=== PATIENT | female | born 1935 | race Caucasian/White ===

== ENCOUNTER 2018-10-29 14:27 | Inpatient (IN) | payer OTHER ==
[~2018-10-29] VITALS: Ht 167.6 cm; Wt 75.8 kg
[~2018-10-29 14:27] MED LIST: AMITRIPTYLINE H50 MG PO; AMITRIPTYLINE25 MG PO; AMLODIPINE BESY10 M1 PO; AMLODIPINE10 MG PO; ASPIR 8181 MG PO; ATENOLOL25 PO; ATOXIMETIN-B1 CAP PO; BACO TOP; CYTOMEL0.005 MG PO; ELITE MAGNESIUM1 TAB PO; FISH; HIBICLENS118 ML TOP; HYDROCODONE; LAC PO; LEVAQUIN250 MG PO; LEVOTHYROXINE; LOSART; LOSARTAN POTASS50 M1 PO; NEU100 PO; OMEPRAZOLE DR20 MG PO; SYNTHROID0.125 MG PO; TEN50 PO; TYLENOL WITH CO1 TA2 PO; ZYL300 PO; [UNRECOGNIZED DRUG - OTHER] PO
[2018-10-29 15:47] LABS: BASOPHIL % 0.3 % (0-2); PLATELET COUNT 173 x10^3mcL (130-400)
[2018-10-29 15:48] LABS: RED CELL DISTRIBUTION WIDTH 14.9 % (11.5-14.5)
[2018-10-29 15:56] LABS: CALCIUM 10.4 mg/dL (8.5-10.1); CARBON DIOXIDE 28.9 mmol/L (21-32); CHLORIDE SERUM 105 mmol/L (98-107); CREATININE SERUM 1.7 mg/dL (0.6-1.0); GLUCOSE SERUM 145 mg/dL (74-106); POTASSIUM SERUM 3.7 mmol/L (3.5-5.1); SODIUM SERUM 139 mmol/L (136-145)
[2018-10-29 16:00] LABS: ALKALINE PHOSPHATASE 129 U/L (46-116); ALT/SGPT 26 U/L (14-59); AST/SGOT 31 U/L (15-37); BILIRUBIN TOTAL 0.58 mg/dL (0.20-1.00); LIPASE 95 IU/L (73-393); TOTAL PROTEIN, SERUM 6.6 g/dL (6.4-8.2)
[2018-10-29 16:01] LABS: ALBUMIN 3.3 g/dL (3.4-5.0)
[2018-10-29 16:58] LABS: UA SPECIFIC GRAVITY 1.015 (1.005-1.035); microscopic required? YES; urine erythrocyte NEGATIVE (NEGATIVE)
[2018-10-29] MEDS ORDERED: ATENOLOL50 MG PO (17:39)
[2018-10-29] MEDS ORDERED: LOSARTAN POTAS100 M1 PO (17:40)
[2018-10-29] MEDS ORDERED: SYNTHROID0.075 MG PO (17:40)
[2018-10-29] MEDS ORDERED: NEU300 PO (17:40)
[2018-10-29] MEDS ORDERED: AMITRIPTYLINE H50 MG PO (17:40)
[2018-10-29] MEDS ORDERED: ASPIR 8181 MG PO (17:40)
[2018-10-29 20:24] VITALS: BP 88/46
[2018-10-29 21:25] VITALS: BP 86/54
[2018-10-29 21:50] VITALS: BP 119/78
[2018-10-29 23:00] VITALS: BP 110/77
[2018-10-30] VITALS (7 sets, daily range): BP systolic 74–114; BP diastolic 45–76; Ht 167.6 cm; Wt 75.8 kg
[2018-10-30 04:03] LABS: UA SPECIFIC GRAVITY 1.025 (1.005-1.035); microscopic required? YES; urine erythrocyte TRACE (NEGATIVE)
[2018-10-30 05:19] LABS: PLATELET COUNT 191 x10^3mcL (130-400); RED CELL DISTRIBUTION WIDTH 14.5 % (11.5-14.5)
[2018-10-30 05:46] LABS: CALCIUM 9.4 mg/dL (8.5-10.1); CARBON DIOXIDE 25.8 mmol/L (21-32); CHLORIDE SERUM 107 mmol/L (98-107); CREATININE SERUM 1.7 mg/dL (0.6-1.0); GLUCOSE SERUM 120 mg/dL (74-106); POTASSIUM SERUM 4.3 mmol/L (3.5-5.1); SODIUM SERUM 135 mmol/L (136-145); T4(THYROXINE) 5.3 ug/dL (4.7-13.3)
[2018-10-30 06:36] LABS: BAND NEUTROPHIL 15 % (0-10); MONOCYTE 8 % (0-7); SEGMENTED NEUTROPHILS 71 % (37-75)
[2018-10-30 06:39] LABS: PLATELET MORPHOLOGY PLATELETS NORMAL; rbc morphology (normal/abnorm) ABNORMAL (NORMAL)
[2018-10-30 06:41] LABS: ERYTHROCYTE SED RATE 19 mm/hr (0-30)
[2018-10-31] VITALS (9 sets, daily range): BP systolic 88–136; BP diastolic 43–78
[2018-10-31 05:10] LABS: PLATELET COUNT 156 x10^3mcL (130-400)
[2018-10-31 05:12] LABS: BASOPHIL % 0 % (0-2); RED CELL DISTRIBUTION WIDTH 15.2 % (11.5-14.5)
[2018-10-31 05:27] LABS: CALCIUM 8.9 mg/dL (8.5-10.1); CARBON DIOXIDE 25.8 mmol/L (21-32); CHLORIDE SERUM 110 mmol/L (98-107); CREATININE SERUM 1.7 mg/dL (0.6-1.0); GLUCOSE SERUM 161 mg/dL (74-106); POTASSIUM SERUM 5.1 mmol/L (3.5-5.1); SODIUM SERUM 138 mmol/L (136-145)
[2018-10-31 12:27] LABS: RAPID PLASMA REAGIN Non Reactive (Non Reactive); RHEUMATOID ARTHRITIS FACTOR 10.4 IU/mL (0.0-13.9)
[2018-11-01] VITALS (14 sets, daily range): BP systolic 97–152; BP diastolic 54–95
[2018-11-01 06:01] LABS: CALCIUM 9.1 mg/dL (8.5-10.1); CHLORIDE SERUM 112 mmol/L (98-107); CREATININE SERUM 1.6 mg/dL (0.6-1.0); GLUCOSE SERUM 156 mg/dL (74-106); POTASSIUM SERUM 4.2 mmol/L (3.5-5.1); SODIUM SERUM 143 mmol/L (136-145)
[2018-11-01 06:05] LABS: BASOPHIL % 0 % (0-2); PLATELET COUNT 141 x10^3mcL (130-400)
[2018-11-02 05:12] VITALS: BP 152/75
[2018-11-02 07:01] LABS: CALCIUM 9.5 mg/dL (8.5-10.1); CARBON DIOXIDE 24.9 mmol/L (21-32); CHLORIDE SERUM 112 mmol/L (98-107); CREATININE SERUM 1.6 mg/dL (0.6-1.0); GLUCOSE SERUM 119 mg/dL (74-106); POTASSIUM SERUM 4.3 mmol/L (3.5-5.1); SODIUM SERUM 145 mmol/L (136-145)
[2018-11-02 08:56] VITALS: BP 152/80
[2018-11-02 09:35] LABS: BASOPHIL % 0.2 % (0-2); PLATELET COUNT 161 x10^3mcL (130-400)
[2018-11-02 09:36] LABS: RED CELL DISTRIBUTION WIDTH 15.7 % (11.5-14.5)
[2018-11-02 13:38] VITALS: BP 137/78
[2018-11-02 16:47] VITALS: BP 156/80
[2018-11-02 21:43] VITALS: BP 122/59
[2018-11-03 05:53] VITALS: BP 154/76
[2018-11-03 06:17] LABS: BASOPHIL % 0.1 % (0-2); PLATELET COUNT 174 x10^3mcL (130-400)
[2018-11-03 10:14] VITALS: BP 143/73
[2018-11-03 12:28] VITALS: BP 159/71
[2018-11-03 17:00] VITALS: BP 144/78
[2018-11-03 20:53] VITALS: BP 142/94
[2018-11-04 04:07] VITALS: BP 141/70
[2018-11-04 05:14] VITALS: BP 101/52
[2018-11-04 07:44] LABS: BASOPHIL % 0 % (0-2); PLATELET COUNT 222 x10^3mcL (130-400); RED CELL DISTRIBUTION WIDTH 15.1 % (11.5-14.5)
[2018-11-04 08:02] LABS: ALKALINE PHOSPHATASE 78 U/L (46-116); ALT/SGPT 18 U/L (14-59); AST/SGOT 16 U/L (15-37); BILIRUBIN TOTAL 0.2 mg/dL (0.20-1.00); CALCIUM 10.2 mg/dL (8.5-10.1); CARBON DIOXIDE 24.4 mmol/L (21-32); CHLORIDE SERUM 107 mmol/L (98-107); CREATININE SERUM 1.5 mg/dL (0.6-1.0); GLUCOSE SERUM 171 mg/dL (74-106); POTASSIUM SERUM 3.8 mmol/L (3.5-5.1); SODIUM SERUM 141 mmol/L (136-145)
[2018-11-04 08:08] LABS: ALBUMIN 2.3 g/dL (3.4-5.0); TOTAL PROTEIN, SERUM 5.6 g/dL (6.4-8.2)
[2018-11-04 08:59] VITALS: BP 129/64
[2018-11-04 13:09] VITALS: BP 151/80
[2018-11-04 16:42] VITALS: BP 147/73
[2018-11-04 20:27] VITALS: BP 149/69
[2018-11-05 05:53] VITALS: BP 155/74
[2018-11-05 06:34] LABS: CALCIUM 9.7 mg/dL (8.5-10.1); CARBON DIOXIDE 28.6 mmol/L (21-32); CHLORIDE SERUM 108 mmol/L (98-107); CREATININE SERUM 1.4 mg/dL (0.6-1.0); GLUCOSE SERUM 130 mg/dL (74-106); POTASSIUM SERUM 3.6 mmol/L (3.5-5.1); SODIUM SERUM 143 mmol/L (136-145)
[2018-11-05 06:37] LABS: PLATELET COUNT 221 x10^3mcL (130-400)
[2018-11-05 06:43] LABS: BASOPHIL % 0 % (0-2)
[2018-11-05 08:57] VITALS: BP 151/88
[2018-11-05 10:05] VITALS: BP 150/73
[2018-11-05 12:34] VITALS: BP 141/75
[2018-11-05 14:32] VITALS: BP 141/75
[2018-11-05] MEDS ORDERED: LOPRESSOR50 M1 PO (15:00)
[2018-11-05] MEDS ORDERED: ELIQUIS2.5 MG PO (15:06)
[2018-11-05] MEDS ORDERED: LAC30L PO (15:06)
[2018-11-05] MEDS ORDERED: PULMICORT0.5 MG/2 M IH (15:09)
[2018-11-05] MEDS ORDERED: LEV250PM IV (15:11)
[2018-11-05] MEDS ORDERED: FLA500I IV (15:12)
== END 2018-11-05 20:43 | DRG 871 ==
LOC: ED 14:27 → IC 18:57 → DU 18:57 → IC 21:52 → DU 11-01 15:03
PROVIDERS: Emergency Medicine; Internal Medicine Cardiovascular Disease; ADMIT Internal Medicine
PROC: 02HV33Z Insertion of Infusion Device into Superior Vena Cava, Percutaneous Approach (ICD-10-PCS; principal; 2018-10-30)
PROC: B548ZZA Ultrasonography of Superior Vena Cava, Guidance (ICD-10-PCS; 2018-10-30)
DX: A41.9 Sepsis, unspecified organism (principal); R65.21 Severe sepsis with septic shock; J96.21 Acute and chronic respiratory failure with hypoxia; J15.9 Unspecified bacterial pneumonia; I50.31 Acute diastolic (congestive) heart failure; N17.9 Acute kidney failure, unspecified; I45.2 Bifascicular block; I13.0 Hypertensive heart and chronic kidney disease with heart failure and stage 1 through stage 4 chronic kidney disease, or unspecified chronic kidney disease; E44.0 Moderate protein-calorie malnutrition; N18.9 Chronic kidney disease, unspecified; E11.22 Type 2 diabetes mellitus with diabetic chronic kidney disease; E86.0 Dehydration; R68.0 Hypothermia, not associated with low environmental temperature; R55 Syncope and collapse; K59.09 Other constipation; D64.9 Anemia, unspecified; E03.9 Hypothyroidism, unspecified; J44.9 Chronic obstructive pulmonary disease, unspecified; M19.90 Unspecified osteoarthritis, unspecified site; Z95.0 Presence of cardiac pacemaker; Z68.27 Body mass index [BMI] 27.0-27.9, adult
CPT/HCPCS: 36556; 36600; 82962; 83880; 86431; 90658; 90732; 97110-GP; 97116-GP; 97530-GP; J1160; J1720; J1940; J1956; J2920; J3490; J7030; J7040; J7050; J7620; J7626; Q0092

== ENCOUNTER 2019-04-30 11:18 | Inpatient (IN) | payer OTHER ==
[~2019-04-30] VITALS: Ht 152.4 cm; Wt 71.4 kg
[~2019-04-30 11:18] MED LIST changes: +ATENOLOL50 MG PO; +ELIQUIS2.5 MG PO; +FLA500I IV; +LAC30L PO; +LEV250PM IV; +LOPRESSOR50 M1 PO; +LOSARTAN POTAS100 M1 PO; +NEU300 PO; +PULMICORT0.5 MG/2 M IH; +SYNTHROID0.075 MG PO
--- NOTE | 2019-04-30 11:23 | NUR ---
PT BIBA FROM HOME FOR FEELING GENERALLY WEAK. PT SAID SYMPTOMS STARTED THIS MORNING AND TOOK BP AT HOME AND SYSTOLIC BP WAS IN THE 80'S WHEN PT CALLED 911. PT DENIES ALL PAIN. STS "I FEEL OUT OF IT". -MLAPSS. SPEAKING IN CLEAR AND COMPLETE SENTENCES. AAOX4, RESPS E/U; DENIES RECENT ILLNESS. 20G IV TO L FA STARTED BY MEDICS. PT ON GURNEY IN POSITION OF COMFORT CONNECTED TO MONITOR. PT REPORTS TAKING NORCO AROUND 0900 FOR NEUROPATHY PAIN IN LEGS. CHANGED INTO GOWN AWAITING MSE.
--- NOTE | 2019-04-30 11:35 | NUR ---
PT REPORTS NEEDING TO HAVE BM; ASSISTED TO BED SIDE COMMODE.
--- NOTE | 2019-04-30 11:45 | NUR ---
PT REPORTS NOT FEELING WEAK ANYMORE AFTER HAVING LARGE BM
[2019-04-30 12:30] LABS: BASOPHIL % 0.2 % (0-2); PLATELET COUNT 165 x10^3mcL (130-400)
--- NOTE | 2019-04-30 12:34 | NUR ---
SLEEPING ON GURNEY IN POSITION OF COMFORT WITH CALL LIGHT IN REACH.
[2019-04-30 12:45] LABS: CALCIUM 10.4 mg/dL (8.5-10.1); CARBON DIOXIDE 26.8 mmol/L (21-32); CHLORIDE SERUM 108 mmol/L (98-107); CREATININE SERUM 1.8 mg/dL (0.6-1.0); GLUCOSE SERUM 123 mg/dL (74-106); POTASSIUM SERUM 5.1 mmol/L (3.5-5.1); SODIUM SERUM 144 mmol/L (136-145)
[2019-04-30 12:48] LABS: RED CELL DISTRIBUTION WIDTH 17.1 % (11.5-14.5)
[2019-04-30 12:53] LABS: ALKALINE PHOSPHATASE 119 U/L (46-116); ALT/SGPT 12 U/L (14-59); AST/SGOT 20 U/L (15-37); CHOLESTEROL 153 mg/dL (<200); HDL CHOLESTEROL 39 mg/dL (40-60); PHOSPHOROUS 4.1 mg/dL (2.5-4.9); TOTAL PROTEIN, SERUM 6.3 g/dL (6.4-8.2)
[2019-04-30 12:55] LABS: ALBUMIN 2.9 g/dL (3.4-5.0)
--- NOTE | 2019-04-30 13:07 | NUR ---
REPORT GIVEN SCARLET BENSON
--- NOTE | 2019-04-30 14:32 | NUR ---
PT ASLEEP, EASILY AROUSABLE, RESP E/U, IN NO ACUTE DISTRESS.
--- NOTE | 2019-04-30 15:36 | NUR ---
ASSISTED PT ONTO BEDPAN FOR UA.
[2019-04-30 16:53] LABS: UA SPECIFIC GRAVITY <=1.005 (1.005-1.035); microscopic required? YES; urine erythrocyte TRACE (NEGATIVE)
--- NOTE | 2019-04-30 17:37 | NUR ---
REPORT GIVEN TO SCARLET STONER TO ASSUME CARE OF THE PT.
[2019-04-30 18:01] VITALS: BP 101/47
--- NOTE | 2019-04-30 18:11 | NUR ---
RECEIVED PT FROM ED VIA WC ACCOMPANIED WITH EMT, PT SEEN, ALERT AND ORIENTED X 4, VERY VERBALLY RESPONSIVE, DENIES HEADACHE OR DIZZINESS, BREATHING EVEN AND UNLABORED, NO SOB, LUNG SOUNDS DIMINISHED, ON ROOM AIR WITH SPO2:99%, NO RESP DISTRESS NOTED, PULSES PALPABLE, TRACE EDEMA NOTED, GENERALIZED WEAKNESS, BASELINE WALKER AT HOME, UNABLE TO WALK AT THIS TIME, ABD SOFT WITH ACTIVE BS, NO BM AT THIS TIME, INCONTINENT, NO OPEN PRESSURE INJURY NOTED, FALL PRECAUTION IN PLACE, ENDORSED CARE TO PRIMARY NURSE HERBIE.
--- NOTE | 2019-04-30 18:30 | NUR ---
ASSUMED PT. CARE ,AWAKE,ALERT AND ORIENTED. DENIES ANY PAIN AT THIS TIME,NOTED PT. SHAKING AND STATED SHE ALWAYS SHAKING AT HOME.EATING DINNER AT THIS TIME .NO ACUTE DISTRESS NOTED. WILL CONT. PLAN OF CARE.CALL LIGHT W/ IN REACH.WILL CONT.PLAN OF CARE.
--- NOTE | 2019-04-30 19:30 | NUR ---
AOX4. MED SURG. DENIES CP. LUNGS DIMINISHED ON RA. DENIES SOB. PULSES PALPABLE. EDEMA TO BLE. BOWEL SOUNDS ACTIVE. INCONTINENT. AMBULATORY WITH WALKER. SKIN INTACT. C/O BLE PAIN 02/25, WILL MEDICATE PER EMAR. IV TO LFA, PATENT AND INFUSING. BED IN LOWEST POSITION, 2 SIDE RAILS UP, CALL LIGHT IN REACH. INSTRUCTED TO CALL FOR ASSISTANCE.
[2019-04-30 20:04] VITALS: BP 125/49
--- NOTE | 2019-05-01 02:09 | NUR ---
RESTING IN BED WITH EYES CLOSED. BREATHING E/U. NO ACUTE DISTRESS NOTED. WILL CONTINUE TO MONITOR.
[2019-05-01 04:54] VITALS: BP 130/46
--- NOTE | 2019-05-01 06:37 | NUR ---
NO C/O CP OR SOB OVERNIGHT. C/O LEG PAIN WELL CONTROLLED BY NORCO. VSS. NO ACUTE DISTRESS NOTED. WILL ENDORSE TO ONCOMING RN
[2019-05-01 06:41] LABS: CALCIUM 9.4 mg/dL (8.5-10.1); CARBON DIOXIDE 26.7 mmol/L (21-32); CHLORIDE SERUM 111 mmol/L (98-107); CREATININE SERUM 1.7 mg/dL (0.6-1.0); GLUCOSE SERUM 115 mg/dL (74-106); POTASSIUM SERUM 5.5 mmol/L (3.5-5.1); SODIUM SERUM 144 mmol/L (136-145)
[2019-05-01 06:44] LABS: BASOPHIL % 0.2 % (0-2); PLATELET COUNT 153 x10^3mcL (130-400)
[2019-05-01 07:29] LABS: RED CELL DISTRIBUTION WIDTH 17.1 % (11.5-14.5)
--- NOTE | 2019-05-01 07:29 | NUR ---
REPORT TAKEN FROM PUPPET ENGINEER NURSE, PT WOKE FOR REPORT, DENIED PAIN. PT GIVEN CALL ILN TO REACH THE NURSE IF NEEDED, ALSO ADVISED TO CALL THE NEXT BEFORE TRYING TO GET OUT OF BED. PT VERBALLY AGREED. WILL CONTINUE TO MONITOR.
[2019-05-01 09:25] VITALS: BP 95/41
[2019-05-01 16:45] VITALS: BP 121/47
[2019-05-01 19:21] VITALS: BP 126/54
--- NOTE | 2019-05-01 19:30 | NUR ---
PT IS A/O x4. MED SURG. DENIES ANY CHEST PAIN OR PRESSURE. PULSES ARE PRESENT. NO EDEMA NOTED. LUNGS CLEAR IN ALL FEILDS. ON RA, DENIES ANY SOB. EQUAL CHEST RISE AND FALL. NO SIGN OF RESP DISTRESS. BOWEL SOUNDS PRESENT. DENIES ANY ABD DISTRESS. ASSISTED PT WITH THE BEDPAN. PT TOLERATED WELL. SKIN INTACT. DENIES ANY PAIN AT THIS TIME. IV ON LFA INTACT AND PATENT. BED IS AT LOWEST SETTING. CALL LIGHT WITHIN REACH. WILL CONTINUE TO MONITOR.
--- NOTE | 2019-05-02 01:27 | NUR ---
PT IS RESTING IN BED WITH BOTH EYES CLOSED. BREATHING EVEN AND UNLABORED. NO SIGN OF DISTRESS NOTED. BED IS AT LOWEST SETTING. CALL LIGHT WITHIN REACH. WILL CONTINUE TO MONTIOR.
[2019-05-02 06:19] VITALS: BP 112/64
--- NOTE | 2019-05-02 06:33 | NUR ---
PT IS RESTING IN BED WITH BOTH EYES CLOSED. BREATING EVEN AND UNALBORED. NO SIGN OF DISTRESS NOTED. NO ACUTE EVENT OCCURED DURING SHIFT. BED IS AT LOWEST SETTING. CALL LIGHT WITHIN REACH. WILL ENDORSE TO AM NURSE.
--- NOTE | 2019-05-02 07:40 | NUR ---
RECEIVED PATIENT FROM NIGHT NURSE. AWAKE, ALERT AND APPEARS ORIENTED. SITTING UP IN BED FOR BREAKFAST. IV INFUSING NS AT 70 ML/HR.
[2019-05-02 07:41] LABS: BASOPHIL % 0.2 % (0-2); PLATELET COUNT 137 x10^3mcL (130-400); RED CELL DISTRIBUTION WIDTH 16.8 % (11.5-14.5)
[2019-05-02 08:32] LABS: CARBON DIOXIDE 22.4 mmol/L (21-32); CHLORIDE SERUM 111 mmol/L (98-107); CREATININE SERUM 1.4 mg/dL (0.6-1.0); GLUCOSE SERUM 91 mg/dL (74-106); POTASSIUM SERUM 4.5 mmol/L (3.5-5.1); SODIUM SERUM 144 mmol/L (136-145)
[2019-05-02 09:28] VITALS: BP 136/61
[2019-05-02 10:13] VITALS: BP 136/61
[2019-05-02 10:24] VITALS: BP 136/61
[2019-05-02 10:33] VITALS: BP 136/61
--- NOTE | 2019-05-02 10:41 | NUR ---
HAS BEEN SEEN BY DR SLAUGHTER. RECEIVED DISCHARGE ORDERS. SPOKE WITH PATIENT'S SON PER PHONE. HE WILL COMMUNITY SERVICES MANAGER PATIENT AT 1130.
--- NOTE | 2019-05-02 11:49 | NUR ---
PRINTED DISCHARGE INSTRUCTIONS GIVEN AND EXPLAINED TO PATIENT AND SON. PRESCRIPTION PROVIDED. IV CATHETER REMOVED INTACT. DISCHARGED HOME WITH SON. TAKEN TO DISCHARGE OFFICE IN WHEELCHAIR BY GEOFF.
[2019-05-03 14:12] VITALS: Ht 152.4 cm; Wt 71.4 kg
== END 2019-05-02 11:55 | disposition home or self-care (01) | DRG 689 ==
LOC: ED 11:18 → MU 16:50
PROVIDERS: Emergency Medicine; ADMIT Internal Medicine
DX: N39.0 Urinary tract infection, site not specified (principal); N17.0 Acute kidney failure with tubular necrosis; I95.9 Hypotension, unspecified; E86.0 Dehydration; E87.5 Hyperkalemia; I11.9 Hypertensive heart disease without heart failure; I13.10 Hypertensive heart and chronic kidney disease without heart failure, with stage 1 through stage 4 chronic kidney disease, or unspecified chronic kidney disease; N18.9 Chronic kidney disease, unspecified; I25.10 Atherosclerotic heart disease of native coronary artery without angina pectoris; I48.91 Unspecified atrial fibrillation; K21.9 Gastro-esophageal reflux disease without esophagitis; G62.9 Polyneuropathy, unspecified; E03.9 Hypothyroidism, unspecified; M10.9 Gout, unspecified; M19.90 Unspecified osteoarthritis, unspecified site; Z95.0 Presence of cardiac pacemaker; Z79.82 Long term (current) use of aspirin
CPT/HCPCS: G0378; J0696; J7030; J7060; Q0092